=== PATIENT | female | born 1970 | race Hispanic/Latino ===

== ENCOUNTER 2017-12-31 07:48 | Emergency (ER) | payer OTHER ==
[2017-12-31] MEDS ORDERED: METOCLOPRAMIDE 10 MG/2 ML VIAL ONE (08:45)
[2017-12-31] MEDS ORDERED: DiphenhydrAMINE HCL 50 MG/ML VIAL ONE (08:46)
[2017-12-31] MEDS ORDERED: ONDANSETRON HCL 4 MG/2 ML VIAL ONE (08:46)
[2017-12-31 08:58] LABS: APPEARANCE,URINE Cloudy (CLEAR); BILIRUBIN,URINE Negative (NEGATIVE); COLOR,URINE Dark Yellow (YELLOW); GLUCOSE, URINE (UA) Negative (NEGATIVE); KETONES,URINE Trace mg/dL (NEGATIVE); LEUKOCYTE ESTERASE ,URINE Negative (NEGATIVE); NITRATE,URINE Negative (NEGATIVE); OCCULT BLOOD,URINE Negative (NEGATIVE); PROTEIN,URINE Negative (NEGATIVE)
[2017-12-31 09:04] LABS: HCG,QUAL RESULT NEGATIVE (NEGATIVE)
[2017-12-31 09:38] LABS: BACTERIA,URINE Few /HPF (None Seen); RBC,URINE 0-1 /HPF (0-1); WBC,URINE 0-1 /HPF (0-1); YEAST,URINE BUDDING Few /HPF (None Seen)
[2017-12-31 09:39] LABS: MUCUS,URINE Many LPF (None Seen); SQUAMOUS EPITHELIAL CELL,UR Moderate /HPF (0-2)
[2017-12-31 10:15] LABS: AMPHET/METH SCREEN,URINE NEGATIVE (NEGATIVE); BARBITURATE SCREEN, URINE NEGATIVE (NEGATIVE); BENZODIAZEPINES SCREEN,URINE NEGATIVE (NEGATIVE); CANNABINOID SCREEN,URINE NEGATIVE (NEGATIVE); COCAINE SCREEN,URINE NEGATIVE (NEGATIVE); OPIATE SCREEN,URINE NEGATIVE (NEGATIVE); PHENCYCLIDINE SCREEN,URINE NEGATIVE (NEGATIVE)
== END 2017-12-31 12:08 | disposition home or self-care (01) ==
LOC: EDH 07:48
DX: G43.909 Migraine, unspecified, not intractable, without status migrainosus (principal); E11.9 Type 2 diabetes mellitus without complications; I10 Essential (primary) hypertension; Z79.4 Long term (current) use of insulin
CPT/HCPCS: 80305; 81001; 81025; 82948; 96374; 96375; 99284; J1200; J2405; J2765